=== PATIENT | male | born 1955 | race American Indian/Alaskan Native ===

== ENCOUNTER 2020-11-01 10:15 | Day surgery (SDC) | payer BC ==
[2020-11-01] MEDS ORDERED: LACTATED RINGERS 1,000 ML ONE (11:17)
[2020-11-01] MEDS ORDERED: ONDANSETRON 4 MG/2 ML INJ IV PRN (11:29)
[2020-11-01] MEDS ORDERED: HYDROmorphone 1 MG/1 ML INJ IV PRN (11:29)
[2020-11-01] MEDS ORDERED: LACTATED RINGERS 1,000 ML IV SCH (11:30)
--- NOTE | 2020-11-01 11:30 | Anesthesia Day of Surgery ---
Anesthesia Day of Surgery - Day of Surgery Patient Examined: Yes Patient H&P Reviewed: Yes Patient is NPO: Yes
--- NOTE | 2020-11-01 11:31 | Anesthesia Consultation ---
Anesthesia Consult and Med Hx Date of service: 11/01/20 - Airway Anesthetic Teeth Evaluation: Chipped ROM Head & Neck: Adequate (S/P ACDF) Mental/Hyoid Distance: Adequate Mallampati Class: Class I Intubation Access Assessment: Good - Pre-Operative Health Status ASA Pre-Surgery Classification: ASA3 Proposed Anesthetic Plan: General - Pulmonary Hx Smoking: No SOB: No (+2FS) Hx Sleep Apnea: Yes (DX SLEEP APNEA WITH CPAP USE.) - Cardiovascular System Hx Hypertension: Yes (2008) - Central Nervous System Hx Back Pain: Yes (NECK AND BACK PAIN; fingers tingle and weakness) Hx Psychiatric Problems: No - Gastrointestinal Hx Gastroesophageal Reflux Disease: Yes (Occasional dietary) - Endocrine Hx Thyroid Disease: Yes Hx Hypothyroidism: Yes - Hematic Hx Anemia: No - Other Systems Hx Cancer: No
[2020-11-01] MEDS ORDERED: ONDANSETRON 4 MG/2 ML INJ ONE (11:53)
[2020-11-01] MEDS ORDERED: LIDOCAINE MPF (2%) 20 MG/1 ML VIAL 5 ML ONE (11:53)
[2020-11-01] MEDS ORDERED: fentaNYL 100 MCG/2 ML INJ ONE (11:53)
[2020-11-01] MEDS ORDERED: propofoL 200 MG/20 ML VIAL IV ONE (11:54)
[2020-11-01] MEDS ORDERED: ceFAZolin/STERILE WATER 2 GM/20 ML SYRINGE IV NR (12:00)
[2020-11-01] MEDS ORDERED: WATER FOR IRRIG STERILE 1,500 ML BOTTLE IR ONE (12:17)
[2020-11-01] MEDS ORDERED: WATER FOR IRRIG STERILE 2000 ML IR ONE (12:21)
[2020-11-01] MEDS ORDERED: PHENYLEPHRINE/NS 1,000 MCG/10 ML SYRINGE (OR USE) IV ONE (12:52)
[2020-11-01] MEDS ORDERED: dexAMETHasone 20 MG/5 ML VIAL ONE (13:00)
--- NOTE | 2020-11-01 13:03 | Post Operative Note ---
Date of procedure: 11/01/20 Pre-op diagnosis: bph Post-op diagnosis: same Findings: lat lobes Procedure: cysto rezum Anesthesia: SABRINA Surgeon: ODALYS CUNNINGHAM Estimated blood loss: none Pathology: none Condition: stable Disposition: PACU
--- NOTE | 2020-11-01 13:04 | Discharge Summary ---
Short Stay Discharge Plan Activity: other (no straining ) Weight Bearing Status: Full Weight Bearing Diet: regular Special Instructions: other (inc fluids ) Durable Medical Equipment Needed Upon Discharge: other (ashraf ) Follow up with: HAZEL VILLASENOR MD [Primary Care Provider] - 7 Days ODALYS CUNNINGHAM MD [Staff Physician] - 11/07/20
[2020-11-01] MEDS: HYDROmorphone 1 MG/1 ML INJ IV PRN ×4 (13:06→14:15)
[2020-11-01] MEDS: LACTATED RINGERS 1,000 ML IV SCH ×2 (13:27→13:41)
[2020-11-01 14:16] VITALS: BP 156/103
--- NOTE | 2020-11-01 14:40 | Operative Report ---
DATE OF SURGERY: 11/01/2020 PREOPERATIVE DIAGNOSIS: Bladder outlet obstruction. POSTOPERATIVE DIAGNOSIS: Bladder outlet obstruction with prominent lateral lobes. PROCEDURES: Cystoscopy, Rezum therapy. SURGEON: Dr. Camacho. ANESTHESIA: General. FINDINGS: This is a gentleman with a prominent prostate very high AUA score, bladder outlet obstruction, now presents for treatment. All risks and implications discussed. DESCRIPTION OF PROCEDURE: The patient was brought to the operating room and placed on the operating table. Following induction of anesthesia, placed in lithotomy position, prepped and draped in the usual sterile fashion. Cystourethroscopy showed lateral lobe obstruction. His AUA score was 28. Two treatments on each side were carried out without difficulty after cystourethroscopy showed no papillary lesions, no stones in the bladder. The patient tolerated the procedure well. Rezum was carried out. No complication, brought to recovery in stable condition. TID: [id number] RECEIPT: [id number] JACKELINE/RAFFY/BONNIE
--- NOTE | 2020-11-01 18:09 | Post Anesthesia Evaluation ---
- Post Anesthesia Evaluation Patient Participated: Yes Airway Patent: Yes Stable Respiratory Function: Yes Nausea/Vomiting: No Temp > 96.8F: Yes Pain Manageable: Yes Adequeate Hydration: Yes Anesthesia Complications: No Block Receding Appropriately: Not Applicable Patient on Ventilator: No
== END 2020-11-01 15:25 | disposition home or self-care (01) ==
LOC: OR 10:15
PROVIDERS: ATTEND Urology
DX: N32.89 Other specified disorders of bladder (principal); E78.00 Pure hypercholesterolemia, unspecified; I10 Essential (primary) hypertension; G47.30 Sleep apnea, unspecified; K21.9 Gastro-esophageal reflux disease without esophagitis; E03.9 Hypothyroidism, unspecified; Z88.8 Allergy status to other drugs, medicaments and biological substances; Z98.49 Cataract extraction status, unspecified eye; Z79.899 Other long term (current) drug therapy; Z88.5 Allergy status to narcotic agent
CPT/HCPCS: 53854; A4217; J0690; J1100; J1170; J2370; J2405; J2704; J3010; J7120